=== PATIENT | female | born 1950 | race Caucasian/White ===

== ENCOUNTER 2017-01-15 08:14 | Inpatient (IN) | payer BC ==
--- NOTE | 2016-12-31 13:15 | HP ---
CC: Dr. Russel Gentile at [facility]. * ADMISSION HISTORY AND PHYSICAL: DATE OF ADMISSION: 01/15/17 ATTENDING PHYSICIAN: Jay Masters MD (DICTATED BY HARDIK TOMLIN) CHIEF COMPLAINT: Morbid obesity. HISTORY OF PRESENT ILLNESS: This is a 66-year-old female who first presented to our office for bariatric evaluation in April of 2016. She underwent preoperative testing as noted below as well as medically supervised weight loss visits. An upper GI study on 07/02/16 showed a small sliding hiatal hernia, but was otherwise normal. An ultrasound on the same date showed some fatty liver changes and also what appeared to be a gallbladder polyp. There was no definite evidence of gallstones. EGD was performed in late October of this year showing mild gastric erythema, but otherwise normal anatomy. CLOtest was negative and histology on biopsy showed moderate chronic gastritis. (The patient does not require any chronic use of acid blockers). She is treated medically for type 2 diabetes, hypertension, hypercholesterolemia, and obstructive sleep apnea. She has met with Dr. Masters on a number of occasions and he has reviewed with her the indications for surgery, the risks, benefits, and alternatives. She would like to proceed as scheduled with laparoscopic Deejay -en-Y gastric bypass. She initiates her preoperative diet tomorrow. We also discussed the potential need for modification of her diabetes medications and dose changes should be directed by Dr. Gentile's office. PAST MEDICAL HISTORY: Morbid obesity, type 2 diabetes, hypertension, hypercholesterolemia, hypothyroidism, obstructive sleep apnea (on CPAP). PAST SURGICAL HISTORY: Include tubal ligation, bilateral LASIK surgery for the eyes, left breast biopsy (benign). No reported surgical or anesthesia problems. CURRENT MEDICATIONS: 1. Glyxambi 25/5 one tablet once daily in the morning. 2. Metformin 1000 mg b.i.d. 3. Levemir 15 units subcutaneously q.a.m., 45 units subcutaneously q. p.m. 4. Levothyroxine 137 mcg daily. 5. Lisinopril 20 mg daily. 6. Atenolol 100 mg q. a.m. 7. Simvastatin 20 mg daily. She does not normally take any additional supplements though was encouraged to maintain a vitamin D supplement based on her previous low vitamin D levels and need for vitamin D replacement therapy. She will initiate the vitamin D at 3000 international units once daily between now and surgery and then postoperatively when able. DRUG ALLERGIES: None known. FAMILY HISTORY: Positive for morbid obesity and diabetes. It is negative for anesthesia problems, bleeding, or clotting disorders. SOCIAL HISTORY: The patient is (her is going through treatment for metastatic lung cancer). 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 She denies use of tobacco. She drinks alcohol rarely and denies other recreational drug use. REVIEW OF SYSTEMS: General: No recent constitutional symptoms or acute illnesses. Weight has been relatively stable, though down a few pounds since her initial intake interview. HEENT: She has annual eye exams with no recent changes reported. She does use full upper and lower dentures. No other problems reported. Nodes: No reported lymphadenopathy. Cardiovascular: She was treated for hypertension. No history of chest pain, palpitations, MD, or angina. No history of heart murmur. Respiratory: She is treated for sleep apnea. No history of asthma, chronic cough, or shortness of breath. GI: Minor GERD symptoms with occasional use of [id number] antacid. EGD findings as above. No lower GI symptoms. Colonoscopy done within the past year with removal of 4 benign polyps and also notable for diverticulosis. Recommendation was for 4-year followup. : No problems reported. 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 Mammogram done in April 2016. The patient advised to have annual breast exam. Endocrine: Type 2 diabetes with fingersticks generally in the 150 range. She is not aware of her most recent A1c. She is on thyroid replacement therapy. PHYSICAL EXAMINATION GENERAL: Well-nourished, well-developed female in no acute distress. VITAL SIGNS: Height 64 inches, weight 224 pounds, blood pressure 140/86, pulse 84, respirations 18. SKIN: Warm and dry. No suspicious rashes or lesions noted. HEENT: Pupils are equal, round, and reactive. EOMs intact. No conjunctival pallor. Oropharynx: Full upper and lower dentures. Mucous membranes moist, no intraoral lesions. NECK: No lymphadenopathy in the cervical or supraclavicular regions. No palpable thyromegaly or masses. LUNGS: Clear to auscultation. No rales or wheezes. HEART: Regular rate and rhythm. No murmur noted. BREASTS: Not examined. ABDOMEN: Well-healed subumbilical incision. Soft, nontender to palpation, no palpable masses or organomegaly, though exam is somewhat limited by body habitus. She has a significant abdominal pannus. There are no rashes or lesions of concern. EXTREMITIES: Trace edema on the left, none on the right. Difficult to feel peripheral pulses on the left. Her posterior tibial is intact on the right. GENITAL AND RECTAL: Not done. No new problems reported. BACK: No spinous process or CVA tenderness. NEUROLOGIC: Grossly intact. IMPRESSION: Morbid obesity. PLAN/RECOMMENDATIONS: Laparoscopic Deejay-en-Y gastric bypass. HARDIK TOMLIN [id number]/[facility] #: [id number] MTDD
[~2017-01-15 08:14] MED LIST: Atracurium* 10 MG/ML 10 ML VIAL ONE; Buffered Lidocaine 0.9% SYRIN* 5 ML/SYR SYRINGE INTRADERM ONE; Buffered Lidocaine 0.9% SYRIN* 5 ML/SYR SYRINGE ONE; CeFAZolin 1 GM PREMIX(*) 1 GM BAG (REFRIGERATE) IVPB ONE; Clindamycin 900 MG IVPREMIX(* 900 MG/50 ML SDV IV ONE; Famotidine IV* 10 MG/ML 2 ML (20 mg) IV ONE; Famotidine IV* 10 MG/ML 2 ML (20 mg) ONE; KETAMINE HCL* 50 MG/ML 10 ML VIAL ONE; Midazolam* 1 MG/ML 5 ML VIAL (5 MG) ONE; PROCHLORPERAZINE INJ 5 MG/ML 2 ML VIAL IV PRN; Scopolamine 1.5 mg* PATCH ONE; Scopolomine PATCH Remove* 1 NOTE MISC PATCH OFF SCH; ceFAZolin 2 GM PREMIX(*) 2 GM/50 ML BAG IVPB ONE; fentaNYL* 50 MCG/ML 5 ML VIAL (250 MCG VIAL) ONE
[2017-01-15] MEDS ORDERED: Scopolamine 1.5 mg* PATCH TRANSDERM SCH (08:30)
[2017-01-15] MEDS ORDERED: Metoprolol Tartrate IV* 1 MG/ML 5 ML VIAL ONE (08:36)
[2017-01-15] MEDS ORDERED: Ondansetron INJ* 2 MG/ML VIAL ONE (08:50)
[2017-01-15] MEDS ORDERED: Lidocaine 2% PF * 5 ML VIAL ONE (08:50)
[2017-01-15] MEDS ORDERED: Dexamethasone IV* 4 MG/ML 1 ML (4 MG) ONE (08:50)
[2017-01-15] MEDS ORDERED: Propofol* 10 MG/ML 20 ML BTL IV PUSH ONE (08:50)
[2017-01-15] MEDS ORDERED: Flumazenil* 0.1 MG/ML 5 ML MDV ONE (08:57)
[2017-01-15] MEDS ORDERED: Heparin VIAL(*) 5000 UNITS/ML VIAL (FIVE THOUSAND) ONE (09:21)
[2017-01-15] MEDS ORDERED: Methylene Blue 0.5 %* 50 MG/10 ML AMP IV ONE (10:05)
[2017-01-15] MEDS ORDERED: Bupivacaine 0.5% W/EPI SDV* 10 ML VIAL INJ ONE ×2 (10:06→10:15)
[2017-01-15] MEDS ORDERED: PROCHLORPERAZINE INJ 5 MG/ML 2 ML VIAL ONE ×2 (10:19→13:07)
[2017-01-15] MEDS ORDERED: Phenylephrine INJ* 10 MG/ML 1 ML VIAL (10 MG) ONE (10:20)
[2017-01-15] MEDS ORDERED: Neostigmine Methylsulfate* 2 MG/2 ML SYRINGE ONE (10:20)
[2017-01-15] MEDS ORDERED: Glycopyrrolate IV* 0.2 MG/ML 1 ML VIAL ONE (10:20)
[2017-01-15] MEDS ORDERED: EPHEDrine (Pressors)* 50 MG/ML VIAL ONE (11:15)
[2017-01-15] MEDS ORDERED: Morphine INJ* 10 MG/ML 1 ML SYRINGE ONE ×2 (11:37→12:32)
[2017-01-15] MEDS ORDERED: Acetaminophen ADULT LIQ* 650 MG/20.3 ML UDC PO PRN (12:10)
[2017-01-15] MEDS ORDERED: HYDROcodone/ACET. 7.5/325 LIQ* 15 ML UDC PO PRN (12:10)
[2017-01-15] MEDS ORDERED: Ondansetron INJ* 2 MG/ML VIAL IV PRN (12:10)
[2017-01-15] MEDS ORDERED: HYDROmorphone* 1 MG/ML 1 ML SYR IV PRN (12:10)
[2017-01-15] MEDS ORDERED: Dextrose 50% Syringe 50 ML* 25 GM/50 ML SYRINGE IV PUSH PRN (12:14)
--- NOTE | 2017-01-15 12:21 | PN ---
Progress Note - Progress Note Date of Service: 01/15/17 Note: Brief Operative Note: Pre-op: Morbid obesity Post-op: Same Procedure: Laparoscopic RYGB Surgeon: Dr. Masters [employer]: Maddie Chu Anesthesia: GETA Fluids: LR 2000 cc Drains: FRANCISCA drain to self suction Catheter: Voss to gravity Specimen: None EBL: Minimal Findings: See dictated op note
[2017-01-15] MEDS ORDERED: fentaNYL* 50 MCG/ML 2 ML VIAL (100 MCG VIAL) ONE (12:32)
[2017-01-15] MEDS: fentaNYL* 50 MCG/ML 2 ML VIAL (100 MCG VIAL) IV PRN ×3 (12:33→13:05)
[2017-01-15] MEDS: Morphine INJ* 2 MG/ML 1 ML SYRINGE IV PRN ×2 (12:36→12:50)
[2017-01-15] MEDS: Insulin LISPRO* 1 UNITS UNIT SUBCUT SCH ×2 (18:14→23:58)
[2017-01-16] MEDS: Insulin LISPRO* 1 UNITS UNIT SUBCUT SCH ×3 (05:59→18:00)
[2017-01-16 06:15] LABS: Hematocrit 35 % (35-47); Hemoglobin 11.7 g/dl (12.0-16.0); Mean Corpuscular HGB Conc 34 g/dl (31-36); Mean Corpuscular Hemoglobin 30 pg (27-31); Mean Corpuscular Volume 88 fL (80-97); Mean Platelet Volume 9 um3 (7.4-10.4); Red Blood Count 3.94 10^6/ul (4.0-5.4); Red Cell Distribution Width 15 % (10.5-15); White Blood Count 8.4 10^3/ul (3.5-10.8)
[2017-01-16 06:29] LABS: BUN/Creatinine Ratio 18.2 (8-20); Calcium 8.7 mg/dL (8.6-10.3); EGFR African American 72.4 (>60); EGFR Non-African American 56.3 (>60); Potassium 4.9 mmol/L (3.5-5.0)
[2017-01-16] MEDS ORDERED: Famotidine IV* 10 MG/ML 2 ML (20 mg) ONE (07:42)
[2017-01-16] MEDS ORDERED: D5W 1/2 NS KCl 20 Meq 1000 ML* 1,000 ML IV SCH (12:13)
[2017-01-16] MEDS ORDERED: LR @ 20 MLS/HR IV SCH (14:00)
--- NOTE | 2017-01-16 15:12 | OP ---
CC: Russel Gentile MD * DATE OF OPERATION: 01/15/17 - ROOM #[id number] DATE OF : 52 SURGEON: Jay Masters MD FITNESS TEACHER: HARDIK Irwin ANESTHESIOLOGIST: uQe Richards MD ANESTHESIA: General endotracheal. PRE-OP DIAGNOSIS: Morbid obesity. POST-OP DIAGNOSIS: Morbid obesity. OPERATIVE PROCEDURE: Laparoscopic Deejay-en-Y gastric bypass. ESTIMATED BLOOD LOSS: Less than 50 mL. IV FLUIDS: Crystalloids. SPECIMENS: None. DRAINS: 7-mm FRANCISCA. COMPLICATIONS: None. COUNTS: The instrument, needle, and sponge counts were correct. DESCRIPTION OF PROCEDURE: The patient was brought to the operating room and placed on the table supine. Sequential compression devices were placed on both lower extremities. General anesthesia was administered. Voss catheter was placed. She was positioned and padded appropriately, and she was prepped and draped in the usual sterile fashion. She received appropriate intravenous antibiotics and time- out was performed. Local anesthetic was infiltrated into the skin and soft tissue prior to making each incision. Entry to the abdomen was through a left upper quadrant incision accommodating a 12-mm optical trocar. After accessing the peritoneal cavity, carbon dioxide was insufflated to a pressure of 15 mmHg. Under direct visualization, additional 12-mm bladeless trocars were placed in the supraumbilical midline and in the right upper quadrant. 5-mm trocars were placed in the left upper quadrant laterally and right upper quadrant medially. A Cortney liver retractor was placed percutaneously into the subxiphoid position and used to elevate the left lobe of the liver. Inspection of the abdominal cavity revealed no adhesions. She had a generous sized omentum. The gastric anatomy appeared normal. The cardia of the stomach was mobilized away from the left dinorah of the diaphragm and then a perigastric dissection was undertaken on the lesser curvature to enter the lesser sac. The Endo SYDNI stapler with macario cartridges was used to create the gastric pouch approximately 20 to 30 mL volume. The staple lines were inspected and noted to be intact and hemostatic. Next, the omentum was retracted superiorly. It was divided down the midline with a LigaSure. The transverse colon was retracted superiorly and the ligament of Treitz was identified. The jejunum was measured out approximately 50 cm. At this point, it was tacked to the lateral aspect of the gastric pouch with interrupted 2-0 silks. The gastrojejunal anastomosis was performed with the EndoGIA with a 30-mm cartridge to create a pdgi-mm-czwk gastrojejunostomy. The common enterotomy was then closed with 3-0 Maxon over a 36-Kazakh gastric lavage tube. The jejunum was then divided to the left side of the anastomosis to complete the anastomosis. Then the anastomosis was tested with Methylene blue dye instilled through the oral gastric tube assuring that there was no leak. The Deejay limb was then measured out 75 cm and at this point a functional end-to-side jejunojejunostomy was created with a 60 mm Endo SYDNI stapler with a macario cartridge and again, common enterotomy was run close again with 3-0 Maxon. The side was oversewn with an additional 2-0 silk [id number]. The mesenteric defect then closed with interrupted figure-of- eight 3-0 silks. At this point, inspection revealed that although the Deejay limb appeared viable throughout, there is some slight difference in the perfusion of the anterior Deejay limb just past the anastomosis where the staple line was and therefore, this site was imbricated with 3-0 silks. At this point, a 7-mm FRANCISCA drain was placed into the abdomen and withdrawn through the lateral 5 mm port site. The drain was placed encircled the gastrojejunal anastomosis and it was sutured to the skin with 3-0 Surgipro. The ports were then removed under direct visualization, as was the liver retractor. The drain was placed to suction bulb. The wounds were closed with francois and dressings were applied. The patient tolerated this procedure well, and was extubated and transferred to the recovery room in stable condition. [id number]/[facility] #: [id number] MTDD
--- NOTE | 2017-01-16 15:59 | SURGPN ---
Subjective - Introduction -: Doing very well, denies any complaints. Some nausea last night, resolved, no emesis. Ambulatory out of bed. - Medications -: Active Medications Generic Name Dose Route Start Last Admin Trade Name Freq PRN Reason Stop Dose Admin Acetaminophen 650 mg 01/15/17 12:10 01/16/17 15:13 Tylenol Adult Liq* PO 650 mg Q6H PRN Administration Temp > 101 F Or Mild Pain Hydrocodone Bitart/Acetaminophen 15 ml 01/15/17 12:10 Nortab 7.5/325 Liq* PO Q6H PRN PAIN Dextrose 12.5 gm 01/15/17 12:14 D50w Syringe 50 Ml* IV PUSH .FOR FS < 60 - SS PRN FS < 60 Hydromorphone HCl 0.5 mg 01/15/17 12:10 01/16/17 08:32 Dilaudid Iv* IV 0.5 mg Q3H PRN Administration PAIN - SEVERE Famotidine 20 mg/ Sodium 102 mls @ 408 mls/hr 01/15/17 20:00 01/16/17 07:52 Chloride IVPB 408 mls/hr Q12H LENORA Administration Lactated Ringer's 1,000 mls @ 100 mls/hr 01/16/17 14:00 Lactated Ringers 1000 Ml Bag* IV PER RATE [facility] Insulin Human Lispro 2 - 15 units 01/15/17 18:00 01/16/17 13:13 Humalog* SUBCUT 2 unit Q6HR LENORA Administration Protocol Ondansetron HCl 4 mg 01/15/17 12:10 01/15/17 16:42 Zofran Inj* IV 4 mg Q6H PRN Administration NAUSEA/VOMITING Pharmacy Profile Note 1 note 01/15/17 07:00 Scopolomine Patch Remove* PATCH OFF .AFTER 72 HOURS LENORA Scopolamine 1 patch 01/15/17 08:30 01/15/17 09:09 Transderm-Scop 1.5 Mg Patch* TRANSDERM 1 patch Q72H LENORA Administration Objective - Objective -: Awake and alert, sitting on chair, appears comfortable and in NAD. - Intake and Output -: Intake & Output 01/14/17 01/15/17 01/16/17 01/17/17 06:59 06:59 06:59 06:59 Intake Total 4370 1276 Output Total 1005 1245 Balance 3365 31 Weight 218 lb 12.8 oz Intake: IV Fluids 4370 1079 LR 4370 1079 IVPB 107 pepcid 107 Oral 0 90 Output: FRANCISCA #1 80 95 Urine 100 Voss 925 1050 Surgical Physical Exam - Comments -: VSS, afebrile Lungs CTA bilat. Heart RRR, no murmurs Abdomen soft, NT, ND. Incisions clean and dry. J-vac with 10 cc serosangenious output. Voss with clear urine Assessment and Plan - Assessment -: A 66 y/o female, POD#1 s/p laparoscopic RYGB, doing well. - Plan Additional Comments: D/c Voss Start stage I bariatric clear liquids Ambulate as tolerated Home in AM
[2017-01-17] MEDS: Insulin LISPRO* 1 UNITS UNIT SUBCUT SCH ×2 (00:29→06:13)
[2017-01-17 08:38] VITALS: BP 146/64
[2017-01-17] MEDS ORDERED: Famotidine IV* 10 MG/ML 2 ML (20 mg) ONE (08:51)
--- NOTE | 2017-01-17 10:58 | SURGPN ---
Subjective - Introduction -: Doing very well, ambulatory. Denies any pain, N/V, fever or chills. Tolerating stage I gastric bypass diet well. - Medications -: Active Medications Generic Name Dose Route Start Last Admin Trade Name Freq PRN Reason Stop Dose Admin Acetaminophen 650 mg 01/15/17 12:10 01/16/17 15:13 Tylenol Adult Liq* PO 650 mg Q6H PRN Administration Temp > 101 F Or Mild Pain Hydrocodone Bitart/Acetaminophen 15 ml 01/15/17 12:10 Nortab 7.5/325 Liq* PO Q6H PRN PAIN Dextrose 12.5 gm 01/15/17 12:14 D50w Syringe 50 Ml* IV PUSH .FOR FS < 60 - SS PRN FS < 60 Hydromorphone HCl 0.5 mg 01/15/17 12:10 01/16/17 08:32 Dilaudid Iv* IV 0.5 mg Q3H PRN Administration PAIN - SEVERE Famotidine 20 mg/ Sodium 102 mls @ 408 mls/hr 01/15/17 20:00 01/17/17 08:59 Chloride IVPB 408 mls/hr Q12H LENORA Administration Lactated Ringer's 1,000 mls @ 100 mls/hr 01/16/17 14:00 01/17/17 09:39 Lactated Ringers 1000 Ml Bag* IV 100 mls/hr PER RATE LENORA Administration Insulin Human Lispro 2 - 15 units 01/15/17 18:00 01/17/17 06:13 Humalog* SUBCUT Not Given Q6HR [facility] Protocol Ondansetron HCl 4 mg 01/15/17 12:10 01/15/17 16:42 Zofran Inj* IV 4 mg Q6H PRN Administration NAUSEA/VOMITING Pharmacy Profile Note 1 note 01/15/17 07:00 Scopolomine Patch Remove* PATCH OFF .AFTER 72 HOURS LENORA Scopolamine 1 patch 01/15/17 08:30 01/15/17 09:09 Transderm-Scop 1.5 Mg Patch* TRANSDERM 1 patch Q72H LENORA Administration Objective - Objective -: Awake and alert, sitting on chair, comfortable and in NAD. - Intake and Output -: Intake & Output 01/15/17 01/16/17 01/17/17 01/18/17 06:59 06:59 06:59 06:59 Intake Total 4370 2772 997 Output Total 1005 2650 Balance 3365 122 997 Weight 218 lb 12.8 oz Intake: IV Fluids 4370 2078 997 LR 4370 2078 997 IVPB 214 pepcid 214 Oral 0 480 Output: FRANCISCA #1 80 150 Urine 1450 Voss 925 1050 Surgical Physical Exam - Comments -: VSS, afebrile Lungs CTA bilat. Heart RRR, no murmurs Abdomen soft, NT, ND. Incisions C/D/I. Ext no edema Assessment and Plan - Assessment -: Doing very well, POD#2, s/p laparoscopic RYGP - Plan Additional Comments: Plan to d/c to home today. Left a message with Dr. Gentile's office to call back to discuss insulin coverage post-op. She has done very well after surgery, we'll see her in office next week.
--- NOTE | 2017-01-18 09:38 | DS ---
CC: Russel Gentile MD* DISCHARGE SUMMARY: DATE OF ADMISSION: 01/15/2017 DATE OF DISCHARGE: 01/17/2017 PATIENT OF: Jay Masters MD ADMISSION DIAGNOSIS: Morbid obesity. DISCHARGE DIAGNOSIS: Morbid obesity. ADMITTING PHYSICIAN: Jay Masters MD CONSULTATIONS: None. PROCEDURES: Laparoscopic Deejay-en-Y gastric bypass on 01/15/2017. BRIEF MEDICAL HISTORY: Ms. Sandra is a pleasant 66-year-old female who was first presented to the [facility] for bariatric evaluation back in April of 2016. She underwent preoperative testing as well as medically supervised weight loss visit. She had preoperative clearance as well as an upper GI study back in June of last year that showed a small sliding hiatal hernia, but otherwise normal. The patient attended support group and had psychological evaluation as well, and she was found to be a good candidate for laparoscopic Deejay- en-Y gastric bypass to be performed by Dr. Masters later this year. She has been treated medically for type 2 diabetes, recently has been taking insulin to control her blood sugar, and had other comorbidities including hypertension, hyperlipidemia, and obstructive sleep apnea. She has met with Dr. Masters a number of times and again was found to be a good candidate for laparoscopic Deejay-en-Y gastric bypass. HOSPITAL COURSE: The patient was admitted on the same on 01/15/2017 in anticipation for surgery. She was taken to the operating room later that day, where she had laparoscopic Deejay-en-Y gastric bypass that was essentially uneventful. After recovery, the patient was transferred to the surgical floor for observation. She did extremely well postoperatively with only very mild incisional discomfort. She was ambulatory out of bed and in a stable condition. She had laboratory workup drawn on the following morning that was essentially normal revealing very mild anemia likely due the hemodilution. Her chemistry panel was within normal limits. Given her history of diabetes, repeated fingersticks were done every 6 hours that revealed reasonable glycemic control without the need for a sliding scale. On the following morning, she was started on stage 1 bariatric diet that she tolerated well. She continued to ambulate and she had a good night sleep on the following day. On the second day postoperatively, she was ready to go home. She denied any complaints of abdominal pain, nausea, or vomiting. She continued to tolerate her bariatric stage 1 diet and her overall oral intake was very reasonable. She will be discharged to home later today and will follow up with us next week as an outpatient. We had questions regarding her glycemic control and insulin coverage given the fact that she will be on a clear-liquid diet for the next couple of weeks. I contacted Dr. Gentile's office and left a message for him to call me back regarding this question, but the patient at this point appears to have a very good glycemic control without the need for any insulin; however, we will await recommendation from her primary care physician. She will be discharged home later today on a stable condition. DISCHARGE MEDICATIONS: Include liquid hydrocodone/Tylenol 1 tablespoon as needed for pain. The patient also has her home medication, which is on hold for now including vitamin D 1000 units 1 tablet daily, atenolol 100 mg p.o. daily, linagliptin 1 tablet p.o. daily, Levemir 30 units subcu daily, Synthroid 137 micrograms p.o. q.a.m., lisinopril 20 mg p.o. q.a.m., simvastatin 20 mg p.o. daily, and metformin 1000 mg p.o. b.i.d. PROBLEM LIST: Morbid obesity, status post laparoscopic Deejay-en-Y gastric bypass on 01/15/2017. HARDIK GOODRICH [id number]/[facility] #: [id number] MTDD
== END 2017-01-17 13:25 | disposition home or self-care (01) | DRG 403 ==
LOC: AA 08:14 → SSU 12:10
PROVIDERS: ADMIT Surgery; ATTEND Surgery
PROC: 0D164ZA Bypass Stomach to Jejunum, Percutaneous Endoscopic Approach (ICD-10-PCS; principal; 2017-01-15 10:00)
DX: E66.01 Morbid (severe) obesity due to excess calories (principal); I10 Essential (primary) hypertension; E11.9 Type 2 diabetes mellitus without complications; D64.9 Anemia, unspecified; E03.9 Hypothyroidism, unspecified; K44.9 Diaphragmatic hernia without obstruction or gangrene; E78.5 Hyperlipidemia, unspecified; G47.33 Obstructive sleep apnea (adult) (pediatric); E78.00 Pure hypercholesterolemia, unspecified; K21.9 Gastro-esophageal reflux disease without esophagitis; K57.30 Diverticulosis of large intestine without perforation or abscess without bleeding; R11.0 Nausea; Z79.4 Long term (current) use of insulin; Z68.38 Body mass index [BMI] 38.0-38.9, adult; Z98.51 Tubal ligation status; Z83.3 Family history of diabetes mellitus; Z84.89 Family history of other specified conditions; Z86.010 Personal history of colon polyps; Z80.1 Family history of malignant neoplasm of trachea, bronchus and lung
CPT/HCPCS: 36415; 80048; 85025; A9270-GY; C1776; J0690; J0780; J1100; J1170; J1644; J2250; J2270; J2405; J2704; J3010

== ENCOUNTER 2018-11-26 05:47 | Inpatient (IN) | payer MEDICARE ==
[~2018-11-26 05:47] MED LIST changes: -Atracurium* 10 MG/ML 10 ML VIAL ONE; -Buffered Lidocaine 0.9% SYRIN* 5 ML/SYR SYRINGE INTRADERM ONE; -Buffered Lidocaine 0.9% SYRIN* 5 ML/SYR SYRINGE ONE; +Buffered Lidocaine 1% SYRIN* 1 ML/SYRINGE INTRADERM ONE; -CeFAZolin 1 GM PREMIX(*) 1 GM BAG (REFRIGERATE) IVPB ONE; -Clindamycin 900 MG IVPREMIX(* 900 MG/50 ML SDV IV ONE; -Famotidine IV* 10 MG/ML 2 ML (20 mg) IV ONE; -Famotidine IV* 10 MG/ML 2 ML (20 mg) ONE; -KETAMINE HCL* 50 MG/ML 10 ML VIAL ONE; -Midazolam* 1 MG/ML 5 ML VIAL (5 MG) ONE; -PROCHLORPERAZINE INJ 5 MG/ML 2 ML VIAL IV PRN; -Scopolamine 1.5 mg* PATCH ONE; -Scopolomine PATCH Remove* 1 NOTE MISC PATCH OFF SCH; -ceFAZolin 2 GM PREMIX(*) 2 GM/50 ML BAG IVPB ONE; -fentaNYL* 50 MCG/ML 5 ML VIAL (250 MCG VIAL) ONE
[2018-11-26] MEDS ORDERED: Lactated Ringers 1000 ML Bag* 1,000 ML IV SCH (06:00)
[2018-11-26] MEDS ORDERED: Famotidine IV* 10 MG/ML 2 ML (20 mg) IV ONE (06:00)
[2018-11-26] MEDS ORDERED: Dexamethasone IV* 4 MG/ML 1 ML (4 MG) IV SLOW PU ONE (06:00)
[2018-11-26] MEDS ORDERED: Dexamethasone IV* 4 MG/ML 1 ML (4 MG) ONE (06:05)
[2018-11-26] MEDS ORDERED: ceFAZolin 2 GM PREMIX in ORs 2 GM/50 ML BAG IVPB ONE ×2 (06:05→18:00)
[2018-11-26] MEDS ORDERED: Famotidine IV* 10 MG/ML 2 ML (20 mg) ONE (06:06)
[2018-11-26] MEDS ORDERED: Bupivacaine 0.25% EPI 200,000* 30 ML SDV ONE (07:07)
[2018-11-26] MEDS ORDERED: Midazolam* 1 MG/ML 2 ML VIAL (2 MG) ONE (07:16)
[2018-11-26] MEDS ORDERED: fentaNYL* 50 MCG/ML 2 ML VIAL (100 MCG VIAL) ONE ×4 (07:16→11:45)
[2018-11-26] MEDS ORDERED: Rocuronium* 10 MG/ML VIAL ONE (07:16)
[2018-11-26] MEDS ORDERED: Propofol* 10 MG/ML 20 ML BTL ONE (07:18)
[2018-11-26] MEDS ORDERED: Lidocaine 2% PF * 5 ML VIAL ONE ×2 (07:18)
[2018-11-26] MEDS ORDERED: Phenylephrine 40 MCG/ML SYRINGE ONE (08:01)
[2018-11-26] MEDS ORDERED: Naloxone* 0.4 MG/ML 1 ML VIAL IV PRN (08:32)
[2018-11-26] MEDS ORDERED: Acetaminophen IV 1GM/100ML * 10 MG/ML VIAL IVPB PRN (08:32)
[2018-11-26] MEDS ORDERED: DiMENhydriNATE IV* 50 MG/ML VIAL IV PUSH PRN (08:34)
[2018-11-26] MEDS ORDERED: fentaNYL* 50 MCG/ML 2 ML VIAL (100 MCG VIAL) IV PRN (08:34)
[2018-11-26] MEDS ORDERED: HYDROmorphone INJ1* 1 MG/ML SYRINGE IV PRN (08:34)
[2018-11-26] MEDS ORDERED: hydrALAZINE IV* 20 MG/ML VIAL ONE (08:35)
[2018-11-26] MEDS ORDERED: EPHEDrine (Pressors)* 50 MG/ML VIAL ONE (09:01)
[2018-11-26] MEDS ORDERED: Glycopyrrolate IV* 0.2 MG/ML 1 ML VIAL ONE (09:07)
[2018-11-26] MEDS ORDERED: Ondansetron INJ* 2 MG/ML VIAL ONE (09:07)
[2018-11-26] MEDS ORDERED: Ketorolac INJ* 30 MG/ML 1 ML VIAL ONE (09:07)
[2018-11-26] MEDS ORDERED: Neostigmine Methylsulfate* 3 MG/3 ML SYRINGE ONE (09:08)
[2018-11-26] MEDS ORDERED: Bacitracin OINTMENT* 0.5% 0.5 oz TUBE ONE (10:41)
--- NOTE | 2018-11-26 11:35 | OP ---
Operative Report - Blank - Operative Report Date of Operation: 11/26/18 Note: Brief Operative Note Preop Dx: excess skin abdominal panniculus Postop Dx: same Procedure: abdominoplasty w/ panniculectomy Anesthesia: GET Surgeon: Mustap[employer] Assistant Principal: LANDEN Hicks; HARDIK Ann; GARETH Hernandez Fluids: 1000 ml RL EBL: < 100 ml Specimen: abdominal panniculus Drains: 2 JPs Findings: dictated
[2018-11-26] MEDS ORDERED: Acetaminophen IV 1GM/100ML * 100 ML ONE (11:45)
[2018-11-26] MEDS ORDERED: HYDROmorphone INJ1* 1 MG/ML SYRINGE ONE (11:45)
[2018-11-26] MEDS ORDERED: Acetaminophen TAB* 325 MG PO PRN (11:56)
[2018-11-26] MEDS ORDERED: Morphine INJ* 10 MG/ML 1 ML CARPUJECT IV PRN (11:57)
[2018-11-26] MEDS ORDERED: Ondansetron INJ* 2 MG/ML VIAL IV PRN (12:07)
[2018-11-26] MEDS ORDERED: Heparin VIAL(*) 5000 UNITS/ML VIAL (FIVE THOUSAND) ONE (12:23)
[2018-11-26] MEDS: Lactated Ringers 1000 ML Bag* 1,000 ML IV SCH ×2 (13:05→21:27)
[2018-11-26] MEDS ORDERED: ceFAZolin VIAL(*) 2 GM in NS 0.9% 100 ML* 100 ML IVPB ONE (17:00)
[2018-11-26] MEDS: Latanoprost 0.005%* 2.5 ml BTL BOTH EYES SCH (21:18)
[2018-11-26] MEDS: oxyCODONE/Acetamin 5/325 MG* TAB PO PRN (21:22)
[2018-11-27] MEDS: Levothyroxine TAB* 137 MCG TAB PO SCH (05:35)
[2018-11-27] MEDS: Lactated Ringers 1000 ML Bag* 1,000 ML IV SCH (05:35)
[2018-11-27] MEDS ORDERED: Heparin VIAL(*) 5000 UNITS/ML VIAL (FIVE THOUSAND) SUBCUT SCH (06:00)
--- NOTE | 2018-11-27 08:29 | PN ---
Progress Note - Progress Note Date of Service: 11/27/18 SOAP: Subjective: []Pt seen sitting in chair. Alert and oriented. minimal appetite. some abdo pain. No nausea I stood pt up and remove jennings and examine abdomen and ofter jennings out, she became syncopal and I guided her to the floor. SHe promptly woke up <1 min, and stood up and got into cheir, clammy Objective: Temp Pulse Resp BP Pulse Ox 98.1 F 94 16 105/53 96 11/27/18 03:16 11/27/18 03:16 11/27/18 03:16 11/27/18 03:16 11/27/18 03:16 Intake & Output 11/26/18 11/27/18 11/27/18 22:59 06:59 14:59 Intake Total 280 2251 Output Total 1070 240 20 Balance -790 2010 FRANCISCA x2 sanguinous no additional exam performed Assessment: POD 1 panniculectomy, syncopal event- vasovagal likely Plan: cbc bmp, ekg cont ivf will check on incision later
[2018-11-27] MEDS ORDERED: NS 0.9% 1000 ML** 1,000 ML IV ONE (08:34)
[2018-11-27 10:07] LABS: Hematocrit 25 % (35-47); Hemoglobin 8.4 g/dL (12.0-16.0); Mean Corpuscular HGB Conc 34 g/dL (31-36); Mean Corpuscular Hemoglobin 31 pg (27-31); Mean Corpuscular Volume 92 fL (80-97); Mean Platelet Volume 8.8 fL (7.4-10.4); Platelet Count 251 10^3/uL (150-450); Red Blood Count 2.71 10^6 /uL (3.70-4.87); Red Cell Distribution Width 13 % (10.5-15); White Blood Count 9.6 10^3/uL (3.5-10.8)
[2018-11-27 10:25] LABS: BUN/Creatinine Ratio 22.5 (8-20); EGFR African American 54.2 (>60); EGFR Non-African American 44.8 (>60)
--- NOTE | 2018-11-27 10:41 | OP ---
CC: [facility]; Primary Care Doctor* OPERATIVE REPORT: DATE OF OPERATION: 11/26/18 - Inpatient, room 334-01 DATE OF : 52 SURGEON: Addi Luciano MD ASSISTANTS: Monet Hicks NP, and HARDIK Sam. ANESTHESIOLOGIST: Dr. Copeland. ANESTHESIA: General. PRE-OP DIAGNOSIS: Excess skin and panniculus. POST-OP DIAGNOSIS: Excess skin and panniculus. OPERATIVE PROCEDURE: Panniculectomy. BLOOD LOSS: Less than 100 cc. FLUIDS: 1 L of crystalloid fluid given. SPECIMEN: Panniculus. DRAINS: FRANCISCA drains 2 and vacuum dressing placed at the incision site. DESCRIPTION OF PROCEDURE: The patient was identified in the preoperative area. She was stood up and marked appropriately for the planned procedure taking in account the panniculus. She was then taken to the operating room and placed on the operating table in supine position. Preoperative antibiotics were given. Sequential devices were placed on bilateral lower extremities. General anesthesia was induced. The patient's abdomen was clipped of hair and prepped and draped in standard surgical fashion and time-out was performed. We addressed the markings and made adjustments as needed and started our procedure at the umbilicus. The bulk of skin was incised circumferentially and dissected down to the anterior fascia at the inferior aspect of the umbilicus. We then turned our attention to our lower incision. This was created starting beyond the anterior superior iliac spine bilaterally and extending it 1 fingerbreadth above the pubic symphysis. I had planned to remove some of the mons skin as well and this mons skin would easily come up superiorly and the intention was likely to remove additional lower skin once we reviewed our tension on the panniculectomy site. Bleeders along the dissection were either cauterized or tied off with 2-0 Vicryl. We then got down to the anterior fascia and dissection was carried out in this plane just beyond the umbilicus. At this point, we did not yet take this dissection up to the costal margins, rather we dissected the panniculus off and passed it off as specimen. Hemostasis was achieved at the resection site and we continued our dissection along the fascial plane right up to the costal margins bilaterally and up to the area of the xiphoid. The skin was brought down to the inferior incision site. We placed the patient in a slight beach chair positioning and then addressed the superior aspect of the mons. I felt we can do additional dissection at this site and bring this up , and a transversely created elliptical incision was made at our lower incision site extending into the mons. We dissected this off, skin and fat, staying out of any vital structures and passed this off as an additional specimen. Next, we then reviewed our dissected planes and achieved hemostasis, brought the skin edges together and realized they would lie without significant tension. Decision chose our site on the abdominal wall for the umbilicus and incision was made and the umbilicus was brought into this separate incision in the midline. Next, two #7 FRANCISCA drains were placed in 2 separate stab incisions and placed into the surgical field. Next, the skin incision was reapproximated with interrupted 2-0 Vicryl stitches and 3-0 Vicryl stitches at the subcutaneous level and 4-0 Monocryl subcuticular suture was placed. Next, the umbilical skin was addressed and this was sutured to the skin edges with 3-0 chromic sutures in simple fashion. We then placed a dressing over the umbilicus and then placed a Prevena dressing over the entire panniculectomy incision site. I felt that the patient did not warrant abdominoplasty, did not see a significant laxity in the abdominal wall musculature. The resected portion of skin was 7.7 pounds. The patient was woken up in the OR and transferred to PACU in stable condition. [id number]/[facility] #: [id number] BRIELLE
[2018-11-27] MEDS ORDERED: NS 0.9% 500 ML* 500 ML IV ONE (10:47)
[2018-11-27] MEDS ORDERED: Dextrose 50% Syringe 50 ML* 25 GM/50 ML SYRINGE IV PUSH PRN (10:48)
[2018-11-27] MEDS: NS 0.9% 1000 ML** 1,000 ML IV SCH ×2 (11:04→19:38)
[2018-11-27] MEDS ORDERED: Insulin LISPRO* 1 UNITS UNIT SUBCUT SCH (12:00)
[2018-11-27] MEDS: Insulin LISPRO* 1 UNITS UNIT SUBCUT SCH ×3 (12:51→21:54)
[2018-11-27 12:52] LABS: Hematocrit 24 % (35-47); Hemoglobin 8.2 g/dL (12.0-16.0)
[2018-11-27 13:06] LABS: INR 1.16 (0.82-1.09)
[2018-11-27] MEDS: Latanoprost 0.005%* 2.5 ml BTL BOTH EYES SCH (21:55)
[2018-11-27] MEDS: oxyCODONE/Acetamin 5/325 MG* TAB PO PRN (22:02)
[2018-11-28] MEDS: NS 0.9% 1000 ML** 1,000 ML IV SCH (04:16)
[2018-11-28] MEDS: Levothyroxine TAB* 137 MCG TAB PO SCH (05:44)
[2018-11-28 06:51] LABS: Hematocrit 19 % (35-47); Hemoglobin 6.4 g/dL (12.0-16.0); Mean Corpuscular HGB Conc 34 g/dL (31-36); Mean Corpuscular Hemoglobin 31 pg (27-31); Mean Corpuscular Volume 91 fL (80-97); Mean Platelet Volume 8.5 fL (7.4-10.4); Platelet Count 201 10^3/uL (150-450); Red Blood Count 2.04 10^6 /uL (3.70-4.87); Red Cell Distribution Width 13 % (10.5-15); White Blood Count 7.4 10^3/uL (3.5-10.8)
[2018-11-28 07:07] LABS: BUN/Creatinine Ratio 29.6 (8-20); Calcium 7.7 mg/dL (8.6-10.3); EGFR African American 85.3 (>60); EGFR Non-African American 70.5 (>60)
[2018-11-28] MEDS: Insulin LISPRO* 1 UNITS UNIT SUBCUT SCH ×4 (07:38→21:26)
[2018-11-28 13:11] LABS: Hematocrit 23 % (35-47); Hemoglobin 7.8 g/dL (12.0-16.0)
[2018-11-28 19:02] LABS: Hematocrit 25 % (35-47); Hemoglobin 8.8 g/dL (12.0-16.0)
[2018-11-28] MEDS: oxyCODONE/Acetamin 5/325 MG* TAB PO PRN (21:30)
[2018-11-28] MEDS: Latanoprost 0.005%* 2.5 ml BTL BOTH EYES SCH (21:30)
[2018-11-29] MEDS: Levothyroxine TAB* 137 MCG TAB PO SCH (05:09)
[2018-11-29] MEDS: Insulin LISPRO* 1 UNITS UNIT SUBCUT SCH (07:30)
--- NOTE | 2018-11-29 07:32 | PN ---
Progress Note - Progress Note Date of Service: 11/28/18 SOAP: Subjective: pt seen and examined in am and again in evening. bleeding post-op and low h and h. transfused 2 units prbcs overall feeling well today. Uo fair ambulating, no dizziness appetite good Objective: low BP, afebrile, HR 90s lungs clear abdo: soft/ ND/ NT vac dressing in place- FRANCISCA R: serosanguinous FRANCISCA L: sanguinous close to 1L output total since surgery ext: peripheral edema labs noted Assessment: POD 2 panniculectomy- post op bleeding, though slowing down and HD stable Plan: []H and H saturday likely d/c home Saturday with JPs vac stacy ellis follow up on Saturday
[2018-11-29 07:45] VITALS: BP 136/50
[2018-11-29 08:50] LABS: Hematocrit 26 % (35-47); Hemoglobin 8.8 g/dL (12.0-16.0)
== END 2018-11-29 10:50 | disposition home or self-care (01) | DRG 607 ==
LOC: AA 05:47 → SSU 13:02
PROVIDERS: ADMIT Surgery; ATTEND Surgery
PROC: 0HB7XZZ Excision of Abdomen Skin, External Approach (ICD-10-PCS; principal; 2018-11-26 07:30)
PROC: 30233N1 Transfusion of Nonautologous Red Blood Cells into Peripheral Vein, Percutaneous Approach (ICD-10-PCS; 2018-11-28)
DX: L98.7 Excessive and redundant skin and subcutaneous tissue (principal); E65 Localized adiposity; E78.5 Hyperlipidemia, unspecified; E03.9 Hypothyroidism, unspecified; G47.33 Obstructive sleep apnea (adult) (pediatric); I10 Essential (primary) hypertension; M19.90 Unspecified osteoarthritis, unspecified site; Z98.84 Bariatric surgery status; Z82.5 Family history of asthma and other chronic lower respiratory diseases; Z83.3 Family history of diabetes mellitus; Z72.89 Other problems related to lifestyle; D64.9 Anemia, unspecified
CPT/HCPCS: 36415; 80048; 85014; 85018; 85027; 85610; 86850; 86900; 86901; 86922; 88300; 93005; A9270-GY; A9272-GY; J0360; J0690; J1100; J1170; J1644; J1885; J2250; J2405; J2704; J2710; J3010; P9016